=== PATIENT | male | born 1980 | race Caucasian/White ===

== ENCOUNTER 2016-09-22 18:11 | Emergency (ER) | payer OTHER ==
[~2016-09-22] VITALS: Ht 185.4 cm; Wt 90.7 kg
--- NOTE | 2016-09-22 18:34 | ED Upper Extremity ---
General Stated Complaint: LEFT HAND LAC Source: patient Exam Limitations: no limitations History of Present Illness Time seen by provider: 18:32 Initial Comments To ER per private vehicle from [facility] urgent care with a laceration Just proximal to the fifth digit. He is able to fully flex and extend the finger. He sustained a laceration after jumping out of his semitruck cutting this on a piece of unknown sharp metal on the bed of the truck. [facility] urgent care updated tetanus, x-rayed the hand, did the necessary Workmen's Comp. paperwork and evaluated. They sent him here due to concerns of a tendon laceration and contamination of the wound. He lives in [facility] and is traveling home tonight. He would like orthopedic follow-up to be set up for there. Onset: just prior to arrival Severity: moderate Pain/Injury Location: left hand Method of Injury: unknown Modifying Factors: Worse With Movement Allergies and Home Medications Allergies Coded Allergies: No Known Drug Allergies (Unverified , 09/22/16) Constitutional: see HPI EENTM: see HPI Respiratory: no symptoms reported Cardiovascular: no symptoms reported Genitourinary: no symptoms reported Musculoskeletal: see HPI Skin: no symptoms reported Past Idlhxxf-[id number]-Kopqdm Hx Patient Social History Recent Foreign Travel: No Contact w/Someone Who Travel: No Physical Exam Vital Signs Vital Sign - Last 12Hours 09/22/16 18:27 Temp 99.0 Pulse 99 Resp 18 B/P (MAP) 143/104 Pulse Ox 98 O2 Delivery Room Air Capillary Refill : General Appearance: WD/WN, no apparent distress HEENT: PERRL/EOMI, normal ENT inspection Neck: non-tender, full range of motion Respiratory: no respiratory distress, no accessory muscle use Elbow/Forearm: normal inspection, non-tender, Right Wrist: Yes normal inspection, Yes non-tender Hand: Left, laceration (3 cm laceration over the palm of the left hand at the fifth mcp joint. He maintains full flexion ability. I am able to visualize a flexor tendon sheath however I do not visualize any defect to it. He is able to flex his fifth digit against resistance. There is contamination and stapling of the wound edges from some sort of contaminant. These were debrided as best as possible. Wound edges were then loosely sutured with a total of 7 simple interrupted sutures size 4-0 Prolene after thorough irrigation of the wound with 200 mL of chlorhexidine/saline solution. He maintains sensation to the fingertip. Capillary refill is less than 3 seconds to the fingertip.) Laceration Repair : Wound Location: Upper Extremities Wound Length (cm): 3 Wound's Depth, Shape: sub Q Wound Explored: contaminated Irrigated w/ Saline (ccs): 200 Anesthesia: 1% Lidocaine Volume Anesthetic (ccs): 3 Suture: Prolene Suture Size: 4-0 Number of Sutures: 7 Layer Closure?: 1 Number Deep Layer Sutures: 0 Progress/Results/Core Measures Results/Orders My Orders Orders - SUKHI GUEVARA APRN Lidocaine 2% Injection 20 Ml (Xylocaine (09/22/16 18:45) Medications Given in ED Current Medications Medications Dose Ordered Sig/Srikanth Route Start Time Stop Time Status Last Admin Dose Admin Lidocaine HCl 3 ml ONCE ONCE INJ 09/22/16 18:45 09/22/16 18:46 DC 09/22/16 18:47 3 ML Vital Signs/I&O Vital Sign - Last 12Hours 09/22/16 18:27 Temp 99.0 Pulse 99 Resp 18 B/P (MAP) 143/104 Pulse Ox 98 O2 Delivery Room Air Departure Impression Impression: Primary Impression: Hand laceration Disposition: 01 HOME, SELF-CARE Condition: Stable Departure-Patient Inst. Decision time for Depature: 19:08 Referrals: NO,LOCAL PHYSICIAN (PCP) Primary Care Physician Patient Instructions: Laceration Repair With Stitches (DC) Add. Discharge Instructions: 1. Change the dressing daily 2. Follow-up with an orthopedic surgeon and your hometown for wound check and to further evaluate the ligamentous structures of the hand. I would like for you to be seen within 1 week so you should call tomorrow. Keep an eye out for infection as that is her biggest immediate risk here. This is manifested by increased redness pain or swelling, increased redness or drainage from the wound. Take your antibiotics as directed. You may wash this area gently with soap and water starting tomorrow, otherwise keep it covered for the next week. Scripts Clindamycin HCl (Clindamycin HCl) 300 Mg Capsule 300 MG PO TID for 5 Days, CAP Prov: SUKHI GUEVARA APRN 09/22/16 SUKHI GUEVARA APRN September 22, 2016 18:34
[2016-09-22] MEDS ORDERED: LIDOCAINE 2% 20 ML (XYLOCAINE) VIAL INJ ONE (18:45)
[2016-09-22] MEDS ORDERED: RX-CLINDAMYCIN 150 MG (CLEOCIN) CAP PPK#4 PO STA (19:05)
[2016-09-22] MEDS ORDERED: CLIN300C11 PO (19:10)
[2016-09-22] MEDS ORDERED: CLINDAMYCIN 150 MG (CLEOCIN) CAP PO ONE (19:15)
[2016-09-22 19:17] VITALS: BP 131/96
== END 2016-09-22 19:17 | disposition home or self-care (01) ==
LOC: ER 18:16
DX: S61.412A Laceration without foreign body of left hand, initial encounter (principal); W45.8XXA Other foreign body or object entering through skin, initial encounter; Y92.812 Truck as the place of occurrence of the external cause; Y99.8 Other external cause status
CPT/HCPCS: 12002